=== PATIENT | male | born 1950 | race Caucasian/White ===

== ENCOUNTER 2023-05-17 10:24 | Outpatient (OUT) | payer MEDICARE, SELFPAY ==
--- NOTE | 2023-05-17 10:27 | XR_ITS ---
The [address] [address] Patient Name: VIC SIMPSON MRN: [id number] date: 1950 Sex: M Assigned Patient Location: RAD Current Patient Location: RAD Accession/Order Number: [id number] Exam Date: 05/17/2023 10:45 Report Date: 05/17/2023 11:05 At the request of: LISY FERRER Procedure: XR chest 2V EXAMINATION: XR chest 2V HISTORY: Chest Pain R07.9 , shortness of breath COMPARISON: XR chest 03/27/2023 FINDINGS: LUNGS: Mild opacity and stranding within right lung apex. VASCULATURE: No increased pulmonary vasculature. PLEURA: Large right pleural effusion. CARDIAC: No cardiomegaly or cardiac silhouette abnormality. MEDIASTINUM: No visible mass or adenopathy. BONES: No fracture or visible bone lesion. OTHER: Negative. XR/XR chest 2V IMPRESSION: 1. Grossly stable large right pleural effusion with new mild opacity and stranding within right lung apex; likely infiltrates. 2. Left lung is clear. Electronically authenticated by: KENYON MIRAMONTES Date: 05/17/2023 11:05
== END 2023-05-17 10:25 | disposition home or self-care (01) ==
LOC: RAD 10:24
PROVIDERS: Visit Provider Internal Medicine
DX: R06.02 Shortness of breath (principal); R07.9 Chest pain, unspecified
CPT/HCPCS: 71046

== ENCOUNTER 2023-06-07 12:58 | Outpatient (OUT) | payer MEDICARE, OTHER, SELFPAY ==
--- NOTE | 2023-06-07 13:01 | XR_ITS ---
The [address] [address] Patient Name: VIC SIMPSON MRN: [id number] date: 1950 Sex: M Assigned Patient Location: RAD Current Patient Location: [facility] Accession/Order Number: [id number] Exam Date: 06/07/2023 13:02 Report Date: 06/07/2023 13:20 At the request of: LISY FERRER Procedure: XR chest 2V EXAM: XR chest 2V HISTORY: Pneumonia J18.9 COMPARISON: 05/17/2023 TECHNIQUE: PA and lateral views of the chest. FINDINGS: The cardiomediastinal silhouette is normal. Right pleural effusion and basilar airspace disease. The osseous structures are intact. XR/XR chest 2V IMPRESSION: Right pleural effusion and/or basilar airspace disease. No significant change from prior exam. Electronically authenticated by: RAYSA BETHEA Date: 06/07/2023 13:20
== END 2023-06-07 12:59 | disposition home or self-care (01) ==
LOC: RAD 12:58
PROVIDERS: Visit Provider Internal Medicine
DX: J18.9 Pneumonia, unspecified organism (principal)
CPT/HCPCS: 71046

== ENCOUNTER 2023-06-26 11:23 | Outpatient (OUT) | payer OTHER, SELFPAY ==
[2023-06-26 11:38] VITALS: BP 154/59; PULSE 74; RESP 22; TEMP 36.7; O2SAT 96
--- NOTE | 2023-06-26 12:17 | XR_ITS ---
[address] [address] Patient Name: VIC SIMPSON MRN: [id number] date: 1950 Sex: M Assigned Patient Location: INF Current Patient Location: [facility] Accession/Order Number: [id number] Exam Date: 06/26/2023 08:15 Report Date: 06/26/2023 12:37 At the request of: LISY FERRER Procedure: XR chest 1V EXAM: XR chest 1V HISTORY: Pleural effusion - s/p RIGHT thoracentesis COMPARISON: None. TECHNIQUE: AP view of the chest. FINDINGS: The cardiomediastinal silhouette is normal. The lungs are clear. There is no pneumothorax. Small right pleural effusion. The osseous structures are intact. XR/XR chest 1V IMPRESSION: Small right pleural effusion. Electronically authenticated by: RAYSA BETHEA Date: 06/26/2023 12:37
--- NOTE | 2023-06-26 12:29 | W.PM.PROCNOT ---
Date of procedure: 06/26/23 Pre-op diagnosis: Recurrent right pleural effusion Post-op diagnosis: same as pre-op Procedure: Procedure: Diagnostic & therapeutic ultrasound-guided right thoracentesis Description: Patient brought to room, with time out performed; all voiced agreement of correct patient, procedure, and laterality. Patient was positioned sitting upright. Ultrasound verified fluid collection in the right pleural cavity, with appropriate drainage site marked via marking pen. The area was cleansed and a sterile drape was applied over the area. The drainage site was anesthetized with Lidocaine 1% subcutaneously, intramuscular, to the periosteum, to the pleural cavity with evacuation of a small amount of fluid. An incision was performed with a small blade. The mqxaagdt-hryw-vnincq was inserted through the incision to the pleural fluid, with the catheter advanced over the needle and needle removed. Dark nancy/orange pleural fluid was returned. A total of 500mL of fluid was removed. Procedure was terminated due to lack of fluid return. The catheter was removed during exhalation. Ultrasound noted evacuation of the majority of pleural fluid. A post-op chest x-ray was obtained to verify the presence or lack of a pneumothorax, which is pending at the time of this report. Surgeon: Rafael Downs Estimated blood loss (mL): 0 Condition: stable Disposition: same day
[2023-06-27 12:09] LABS: Triglycerides, Fluid 16 mg/dL (Not Estab.)
[2023-06-27 17:11] LABS: Clarity, Serous Hazy (Clear); Color, Serous Yellow (.); Eosinophils, Serous 0 % (Not Estab.); Lymphocytes, Serous 88 % (Not Estab.); Macrophages, Serous 11 % (Not Estab.); Neut, Serous 1 % (0-24); Nucleated Cells, Serous 1283 /mm3 (0-499); RBC, Serous 5000 /uL (Not Estab.)
[2023-06-28 12:09] LABS: Glucose, Body Fluid 125 mg/dL (.); Protein, Body Fluid 3.5 g/dL (.)
[2023-06-28 17:10] LABS: pH, Body Fluid 7.4 (Not Estab.)
== END 2023-06-26 11:24 | disposition home or self-care (01) ==
LOC: INF 11:23
PROVIDERS: Visit Provider Internal Medicine
DX: J90 Pleural effusion, not elsewhere classified (principal)
CPT/HCPCS: 32554; 36415; 71045; 82945; 83986; 84157; 84478; 86430; 87070; 87101; 87116; 87205; 87206; 88112; 88305; 89050; 89051

== ENCOUNTER 2023-07-20 11:07 | Emergency (ER) | payer MEDICARE, OTHER, SELFPAY ==
[2023-07-20 11:19] VITALS: BP 158/62; PULSE 88; RESP 20; O2SAT 96
[2023-07-20 11:39] VITALS: O2SAT 98
--- NOTE | 2023-07-20 11:39 | ECG_ITS ---
The [facility] Test Date: 2023-07-20 Pat Name: VIC SIMPSON Department: Room: - Gender: Male A/C Technician: : 1950 Requested By: Order Number: [id number] Reading MD: CHRISTY PARIS Measurements Intervals [place] Rate: 62 P: 72 IA: 174 QRS: 47 QRSD: 94 T: 76 QT: 392 QTc: 397 Interpretive Statements 1100 Sinus rhythm 4068 Nonspecific Twave abnormality 9130 borderline ECG No previous ECG available for comparison Electronically Signed On 07-21-2023 5:57:23 EDT by CHRISTY PARIS
--- NOTE | 2023-07-20 11:41 | ED.RECABL1 ---
HPI - Recheck/Abnormal Lab/Rx General Chief Complaint: Recheck/Abnormal Lab/Rx Stated Complaint: POTASSIUM HIGH, DOC SENT PATIENT TO ER Time Seen by Provider: 07/20/23 11:31 Source: patient Mode of arrival: walk-in Limitations comment: K+ 6.4 yesterday and nurse wanted pt to come to ER for EKG. Pt is a [facility]. Denies CP or SOB, pt wears home O2 History of Present Illness HPI narrative: 72-year-old male presents to the emergency department for high potassium. He had routine blood work drawn yesterday and his potassium came back at 6.4 and he was told to go to the emergency department. 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 He has not on a potassium supplement. He has no symptoms. Related Data Home Medications Medication Instructions Recorded Confirmed albuterol 90 mcg/actuation aerosol 90 mcg inhalation TID PRN 07/20/23 07/20/23 inhaler shortness of breath or wheezing alogliptin 12.5 mg tablet 12.5 mg PO QAM 07/20/23 07/20/23 amlodipine 10 mg tablet 10 mg PO DAILY 07/20/23 07/20/23 atorvastatin 40 mg tablet 40 mg PO QPM 07/20/23 07/20/23 carvedilol 25 mg tablet 25 mg PO BID 07/20/23 07/20/23 chlorthalidone 25 mg tablet 37.5 mg PO DAILY 07/20/23 07/20/23 cholecalciferol (vitamin D3) 50 2,000 unit PO QPM 07/20/23 07/20/23 mcg (2,000 unit) tablet (D3 DOTS) cromolyn 5.2 mg/spray (4 %) nasal 1 spray intranasal DAILY PRN 07/20/23 07/20/23 spray congestion ferrous sulfate 325 mg (65 mg 325 mg PO DAILY 07/20/23 07/20/23 iron) tablet (FeroSul) loperamide 2 mg tablet (Diamode) 2 mg PO Q4H PRN loose stool 07/20/23 07/20/23 losartan 25 mg tablet 12.5 mg PO DAILY 07/20/23 07/20/23 magnesium glycinate-mag oxide 100 mg PO QPM 07/20/23 07/20/23 omeprazole 20 mg capsule,delayed 20 mg PO DAILY 07/20/23 07/20/23 release tadalafil 10 mg tablet (Cialis) 10 mg PO DAILY PRN sexual activity 07/20/23 07/20/23 tamsulosin 0.4 mg capsule 0.4 mg PO QPM 07/20/23 07/20/23 Allergies Allergy/AdvReac Type Severity Reaction Status Date / Time No Known Drug Allergies Allergy Verified 07/20/23 11:19 Review of Systems ROS Narrative A ten point review of systems is negative except as noted above. Exam Narrative Exam Narrative: Nurses note and vital signs reviewed and patient is not hypoxic. General: The patient appears well and in no apparent distress. Patient is resting comfortably on cart. Skin: Warm, dry, no pallor noted. There is no rash noted. Head: Normocephalic, atraumatic Eye: Normal conjunctiva, no drainage Ears, Nose, Mouth, and Throat: oral mucosa is moist. Nares patent. Cardiovascular: Regular Rate and Rhythm Respiratory: Patient is in no distress, no accessory muscle use, lungs are clear to auscultation, no wheezing, rales or rhonchi Back: non-tender GI: soft and nontender Musculoskeletal: The patient has no evidence of calf tenderness, no pitting edema, symmetrical pulses noted bilaterally Neurological: A&O, normal speech Psychiatric: Cooperative Constitutional Vital Signs, click to edit/add: Last Vital Signs Pulse 88 07/20/23 11:19 Resp 20 07/20/23 11:19 BP 158/62 H 07/20/23 11:19 Pulse Ox 98 07/20/23 11:39 O2 Del Method Nasal Cannula 07/20/23 11:39 O2 Flow Rate 2 07/20/23 11:39 Course Vital Signs Vital signs: Vital Signs Pulse Rate 88 07/20/23 11:19 Respiratory Rate 20 07/20/23 11:19 Blood Pressure 158/62 H 07/20/23 11:19 Pulse Oximetry 96 07/20/23 11:19 Oxygen Delivery Method Nasal Cannula 07/20/23 11:19 Oxygen Delivery Flow Rate 2.5 07/20/23 11:19 Pulse Rate 88 07/20/23 11:19 Respiratory Rate 20 07/20/23 11:19 Blood Pressure 158/62 H 07/20/23 11:19 Pulse Oximetry 98 07/20/23 11:39 Oxygen Delivery Method Nasal Cannula 07/20/23 11:39 Oxygen Delivery Flow Rate 2 07/20/23 11:39 MDM - Recheck/Abnormal Lab/Rx MDM Narrative Medical decision making narrative: Today's potassium is 5.0. It was 6.4 and that was likely from hemolysis. Nonetheless he doesn't require any treatment and is released. Findings are discussed with the patient and his . Differential Diagnosis Differential diagnosis: Likely other (hyperkalemia, hemolysis) Lab Data Attestation: I reviewed the patient's lab results. Labs: Lab Results 07/20/23 Range/Units 11:35 WBC 2.6 L (4.0-11.0) 10^3/uL RBC 3.42 L (4.70-6.10) 10^6/uL Hgb 9.9 L (14.0-18.0) g/dL Hct 30.7 L (42.0-54.0) % MCV 89.8 (80.0-94.0) fL MCH 28.9 (25.9-34.0) pg MCHC 32.2 (29.9-35.2) g/dL RDW 14.8 (11.0-15.0) % Plt Count 101 L (150-450) 10^3/uL MPV 10.4 (9.5-13.5) fL Neut % (Auto) 57.7 (43.0-75.0) % Lymph % (Auto) 31.3 (20.5-60.0) % [place] % (Auto) 5.7 (1.7-12.0) % Eos % (Auto) 3.8 (0.9-7.0) % Baso % (Auto) 1.1 (0.2-2.0) % Neut # (Auto) 1.5 (1.4-6.5) 10^3/uL Lymph # (Auto) 0.8 L (1.2-3.8) 10^3/uL [place] # (Auto) 0.2 L (0.3-0.8) 10^3/uL Eos # (Auto) 0.1 (0.0-0.7) 10^3/uL Baso # (Auto) 0.0 (0.0-0.1) 10^3/uL Abs Immat Gran (auto) 0.01 (0.00-0.03) 10^3/uL Imm/Tot Granulo (auto) 0.4 (0.0-0.5) % Sodium 140 (136-145) mmol/L Potassium 5.0 (3.5-5.1) mmol/L Chloride 105 (98-107) mmol/L Carbon Dioxide 27.9 (21.0-32.0) mmol/L Anion Gap 12.1 BUN 40.0 H (7.0-18.0) mg/dL Creatinine 2.37 H (0.70-1.30) mg/dL Est GFR ( Amer) 33 L (>=60) Est GFR (Non-Af Amer) 27 L (>=60) BUN/Creatinine Ratio 16.9 Glucose 133 H (74-106) mg/dL Calcium 8.6 (8.5-10.1) mg/dL ECG Data Attestation: I personally reviewed and interpreted this ECG as follows: (EKG on my interpretation shows normal sinus rhythm with a rate of 62.) Discharge Plan Discharge Chief Complaint: Recheck/Abnormal Lab/Rx Clinical Impression: No problem, feared complaint unfounded Patient Disposition: Home, Self-Care Time of Disposition Decision: 13:27 Condition: Good Mode of Transportation: Private Vehicle Prescriptions / Home Meds: No Action alogliptin 12.5 mg tablet 12.5 mg PO QAM amlodipine 10 mg tablet 10 mg PO DAILY atorvastatin 40 mg tablet 40 mg PO QPM carvedilol 25 mg tablet 25 mg PO BID Rx Instructions: must administer with a meal/food cholecalciferol (vitamin D3) [D3 DOTS] 50 mcg (2,000 unit) tablet 2,000 unit PO QPM chlorthalidone 25 mg tablet 37.5 mg PO DAILY cromolyn 5.2 mg/spray (4 %) spray,non-aerosol 1 spray intranasal DAILY PRN (Reason: congestion) loperamide [Diamode] 2 mg tablet 2 mg PO Q4H PRN (Reason: loose stool) Rx Instructions: administer after each loose stool until symptoms controlled; do not exceed 8 mg per 24 hrs losartan 25 mg tablet 12.5 mg PO DAILY magnesium glycinate-mag oxide 120 mg magnesium capsule 100 mg PO QPM omeprazole 20 mg capsule,delayed release(DR/EC) 20 mg PO DAILY ferrous sulfate [FeroSul] 325 mg (65 mg iron) tablet 325 mg PO DAILY tadalafil [Cialis] 10 mg tablet 10 mg PO DAILY PRN (Reason: sexual activity) Rx Instructions: administer approximately 30min before sexual activity; do not use more than 1 dose per 24hrs tamsulosin 0.4 mg capsule 0.4 mg PO QPM albuterol 90 mcg/actuation aerosol 90 mcg inhalation TID PRN (Reason: shortness of breath or wheezing) Stand Alone Forms: Portal Instructions Referrals: NATHANIEL VELASQUEZ [Primary Care Provider] - 1 week
[2023-07-20 13:00] LABS: Basophils Percent Auto 1.1 % (0.2-2.0); Eosinophils Absolute Auto 0.1 10^3/uL (0.0-0.7); Eosinophils Percent Auto 3.8 % (0.9-7.0); Hematocrit 30.7 % (42.0-54.0); Hemoglobin 9.9 g/dL (14.0-18.0); Immature Granulocytes Abs Auto 0.01 10^3/uL (0.00-0.03); Immature Granulocytes Pct Auto 0.4 % (0.0-0.5); Lymphocytes Absolute Auto 0.8 10^3/uL (1.2-3.8); Lymphocytes Percent Auto 31.3 % (20.5-60.0); Mean Corpuscular HGB Conc 32.2 g/dL (29.9-35.2); Mean Corpuscular Hemoglobin 28.9 pg (25.9-34.0); Mean Corpuscular Volume 89.8 fL (80.0-94.0); Mean Platelet Volume 10.4 fL (9.5-13.5); Monocytes Absolute Auto 0.2 10^3/uL (0.3-0.8); Monocytes Percent Auto 5.7 % (1.7-12.0); Neutrophils Absolute Auto 1.5 10^3/uL (1.4-6.5); Neutrophils Percent Auto 57.7 % (43.0-75.0); Platelet Count 101 10^3/uL (150-450); Red Blood Count 3.42 10^6/uL (4.70-6.10); Red Cell Distribution Width 14.8 % (11.0-15.0); White Blood Count 2.6 10^3/uL (4.0-11.0)
[2023-07-20 13:05] LABS: Anion Gap 12.1; BUN Creatinine Ratio 16.9; Calcium 8.6 mg/dL (8.5-10.1); Carbon Dioxide 27.9 mmol/L (21.0-32.0); Chloride 105 mmol/L (98-107); Estimated GFR (African America 33 (>=60); Estimated GFR (Non-African Ame 27 (>=60); Glucose 133 mg/dL (74-106); Sodium 140 mmol/L (136-145)
== END 2023-07-20 13:43 | disposition home or self-care (01) ==
PROVIDERS: Emergency Provider Emergency Medicine
DX: Z71.1 Person with feared health complaint in whom no diagnosis is made (principal); N18.9 Chronic kidney disease, unspecified; Z99.81 Dependence on supplemental oxygen; Z79.899 Other long term (current) drug therapy
CPT/HCPCS: 36415; 80048; 85025; 93005; 99284

== ENCOUNTER 2023-08-20 18:09 | Emergency (ER) | payer MEDICARE, OTHER, SELFPAY ==
[2023-08-20] VITALS (13 sets, daily range): BP systolic 121–149; BP diastolic 45–57; PULSE 72–83; RESP 16–24; TEMP 36.8; O2SAT 90–98; BMI 25.7
--- NOTE | 2023-08-20 18:50 | CT_ITS ---
The [address] [address] Patient Name: VIC SIMPSON MRN: [id number] date: 1950 Sex: M Assigned Patient Location: ER Current Patient Location: ED.MAIN Accession/Order Number: [id number] Exam Date: 08/20/2023 19:13 Report Date: 08/20/2023 20:40 At the request of: LEONILA SOLORIO Procedure: CT abdomen pelvis wo con EXAM: CT abdomen pelvis wo con HISTORY: abdominal COMPARISON: CT abdomen/pelvis dated 05/06/2022. TECHNIQUE: Multiple axial images of the abdomen and pelvis are obtained without the use of IV contrast material. Coronal and sagittal reformatted sequences are submitted for review. FINDINGS: Small right pleural effusion is seen with right lower lobe consolidation. The heart size is normal. Perihepatic ascites is seen. Mild diffuse heterogeneous liver is seen with mild nodular liver surface, which can be seen with cirrhotic changes. Prominent spleen is seen, which measures approximately 16.5 cm in craniocaudad dimension. Perisplenic varices are seen. Small layering tiny gallstones and/or gallbladder sludge is seen in the distended gallbladder. Small pericholecystic fluid versus. Cholecystic ascites is seen. Bilateral kidneys have an unremarkable noncontrast appearance. There is no evidence for nephrolithiasis or hydronephrosis bilaterally. Mild diffuse wall thickening of the urinary bladder is seen, suggestive of mild infectious/inflammatory process. Please correlate clinically. The prostate gland measures 2.9 cm and 4.6 cm in AP and transverse diameter, respectively. Nonobstructive bowel pattern is seen. Small air-fluid levels are seen within nondistended loops of small bowel, which measure up to 2.1 cm in diameter. Stool and gas is seen in the colon. Sigmoid diverticula are seen without significant associated inflammatory changes. Moderate volume of ascites is seen in the abdomen and pelvis. There is no evidence for pneumoperitoneum. The abdominal wall and visualized soft tissues appear unremarkable. No acute osseous abnormality is seen. CT/CT abdomen pelvis wo con IMPRESSION: Small right pleural effusion is seen with right lower lobe Air-fluid levels are seen within minimally distended loops of small bowel, which may represent generalized ileus versus less likely early/partial low-grade small bowel obstruction. Moderate volume of ascites is seen in the abdomen and pelvis. Heterogeneous liver with nodular surface is seen, suggestive of cirrhotic changes. Prominent spleen. No stones and/gallbladder/seen within a distended gallbladder. Small pericholecystic fluid versus ascites is seen. Diffuse wall thickening of the urinary bladder, suggestive of infectious/inflammatory process. Enlarged prostate gland. Electronically authenticated by: MERRILL MOISE Date: 08/20/2023 20:40
[2023-08-20 18:59] LABS: Hematocrit 30.6 % (42.0-54.0); Hemoglobin 9.5 g/dL (14.0-18.0); Mean Corpuscular Hemoglobin 28.1 pg (25.9-34.0); Mean Corpuscular Volume 90.5 fL (80.0-94.0); Mean Platelet Volume 10.2 fL (9.5-13.5); Platelet Count 107 10^3/uL (150-450); Red Blood Count 3.38 10^6/uL (4.70-6.10)
[2023-08-20] MEDS: ONDANSETRON PF 4 MG/2 ML VIAL IV (19:08)
[2023-08-20] MEDS: 0.9 % SODIUM CHLORIDE 1,000 ML 1000 ML IV (19:09)
[2023-08-20] MEDS: 0.9 % SODIUM CHLORIDE 1,000 ML 100 ML IV (19:09)
[2023-08-20 19:17] LABS: Alanine Aminotransferase 11 U/L (16-63); Albumin Globulin Ratio 0.9; Albumin Level 3.2 g/dL (3.4-5.0); Alkaline Phosphatase 129 U/L (46-116); Anion Gap 13.3; Aspartate Amino Transferase 15 U/L (15-37); BUN Creatinine Ratio 15.9; Bilirubin Total 0.6 mg/dL (0.2-1.0); Calcium 9.1 mg/dL (8.5-10.1); Carbon Dioxide 28.9 mmol/L (21.0-32.0); Chloride 102 mmol/L (98-107); Estimated GFR (African America 25 (>=60); Estimated GFR (Non-African Ame 20 (>=60); Globulin 3.7 g/dL; Glucose 145 mg/dL (74-106); Sodium 138 mmol/L (136-145); Total Protein 6.9 g/dL (6.4-8.2)
[2023-08-20 19:21] LABS: Potassium 6.2 mmol/L (3.5-5.1)
[2023-08-20] MEDS: DEXTROSE 50 %-WATER 25 GM/50 ML SYRINGE IV (19:48)
[2023-08-20] MEDS: INSULIN REGULAR 300 UNITS/3 ML 10 UNIT IV (19:48)
[2023-08-20 19:50] LABS: Eosinophils Absolute Manual 0.09 10^3/uL (0.00-0.70); Lymphocytes Absolute Manual 0.42 10^3/uL (1.20-3.80); Monocytes Absolute Manual 0.21 10^3/uL (0.30-0.80); Segmented Neut Absolute Manual 2.34 10^3/uL (1.4-6.5); Toxic Granulation 1+
--- NOTE | 2023-08-20 19:50 | ED.ABDPAIN1 ---
Documented by User: Mishel Horne 08/20/23 21:05 HPI - Abdominal Pain General Chief Complaint: Abdominal Pain Stated Complaint: Constipation, Abdominal Pain Time Seen by Provider: 08/20/23 18:25 Source: patient Mode of arrival: walk-in Limitations: no limitations History of Present Illness HPI narrative: 72-year-old male presents with a chief complaint of abdominal pain and distention. he states she feels constipated he's been unable to have a normal bowel movement for the past 3-4 days.States he has a history of anemia and takes iron supplements daily but has not had a history of constipation. He did try taking Dulcolax earlier today and states he had a small bowel movement. He denies any vomiting. His abdomen is distended. He's had three recent thoracentesis beginning in September 2022, March 2023 and again in June 2023. He had a recent PET scan to rule out lymphoma. He states PET scan was read negative and very underwhelming per his oncologist. He sees oncology at [facility] in [place]. Patient is distended with hypoactive bowel sounds. He denies a history of pain. states he also has a history of COPD, and kidney disease but denies a history of dialysis. States that they do know he does have some current fluid on his lungs from recent pet scan this past week, they have not scheduled to do another thoracentesis at this time Related Data Home Medications Medication Instructions Recorded Confirmed albuterol 90 mcg/actuation aerosol 90 mcg inhalation TID PRN 07/20/23 07/20/23 inhaler shortness of breath or wheezing alogliptin 12.5 mg tablet 12.5 mg PO QAM 07/20/23 07/20/23 amlodipine 10 mg tablet 10 mg PO DAILY 07/20/23 07/20/23 atorvastatin 40 mg tablet 40 mg PO QPM 07/20/23 07/20/23 carvedilol 25 mg tablet 25 mg PO BID 07/20/23 07/20/23 chlorthalidone 25 mg tablet 37.5 mg PO DAILY 07/20/23 07/20/23 cholecalciferol (vitamin D3) 50 2,000 unit PO QPM 07/20/23 07/20/23 mcg (2,000 unit) tablet (D3 DOTS) cromolyn 5.2 mg/spray (4 %) nasal 1 spray intranasal DAILY PRN 07/20/23 07/20/23 spray congestion ferrous sulfate 325 mg (65 mg 325 mg PO DAILY 07/20/23 07/20/23 iron) tablet (FeroSul) loperamide 2 mg tablet (Diamode) 2 mg PO Q4H PRN loose stool 07/20/23 07/20/23 losartan 25 mg tablet 12.5 mg PO DAILY 07/20/23 07/20/23 magnesium glycinate-mag oxide 100 mg PO QPM 07/20/23 07/20/23 omeprazole 20 mg capsule,delayed 20 mg PO DAILY 07/20/23 07/20/23 release tadalafil 10 mg tablet (Cialis) 10 mg PO DAILY PRN sexual activity 07/20/23 07/20/23 tamsulosin 0.4 mg capsule 0.4 mg PO QPM 07/20/23 07/20/23 Allergies Allergy/AdvReac Type Severity Reaction Status Date / Time No Known Drug Allergies Allergy Verified 07/20/23 11:19 Review of Systems ROS Narrative All Systems are negative except as noted/marked.All systems reviewed and otherwise negative [facility] Social History Smoking status: Former smoker Exam Narrative Exam Narrative: Nurses note and vital signs reviewed and patient is not hypoxic. General: The patient appears well and in no apparent distress. Patient is resting comfortably on cart. Skin: Warm, dry, no pallor noted. There is no rash noted. Head: Normocephalic, atraumatic Eye: Normal conjunctiva, no drainage, EOMI. PERRL Ears, Nose, Mouth, and Throat: oral mucosa is moist. Nares patent. Mouth without vesicles. Ear canals patent. Tm's without Erythema Cardiovascular: Regular Rate and Rhythm Respiratory: Lung sounds diminished Back: non-tender, no CVA tenderness bilaterally to percussion. GI: Hypoactive bowel sounds, abdominal distention, Musculoskeletal: The patient has no evidence of calf tenderness, no pitting edema, symmetrical pulses noted bilaterally Neurological: A&O x4, normal speech Psychiatric: Cooperative Constitutional Vital Signs, click to edit/add: Last Vital Signs Temp 98.3 F 08/20/23 18:13 Pulse 73 08/20/23 21:30 Resp 19 08/20/23 21:30 BP 121/50 08/20/23 21:30 Pulse Ox 95 08/20/23 21:30 O2 Del Method Nasal Cannula 08/20/23 18:19 O2 Flow Rate 2 08/20/23 19:59 Course Vital Signs Vital signs: Vital Signs Temperature 98.3 F 08/20/23 18:13 Pulse Rate 79 08/20/23 18:13 Respiratory Rate 24 08/20/23 18:13 Blood Pressure 149/57 H 08/20/23 18:13 Pulse Oximetry 90 L 08/20/23 18:13 Oxygen Delivery Method Nasal Cannula 08/20/23 18:13 Oxygen Delivery Flow Rate 3 08/20/23 18:13 Temperature 98.3 F 08/20/23 18:13 Pulse Rate 73 08/20/23 21:30 Respiratory Rate 19 08/20/23 21:30 Blood Pressure 121/50 08/20/23 21:30 Pulse Oximetry 95 08/20/23 21:30 Oxygen Delivery Method Nasal Cannula 08/20/23 18:19 Oxygen Delivery Flow Rate 2 08/20/23 19:59 MDM - Abdominal Pain MDM Narrative Medical decision making narrative: Patient presented with chief complaint of constipation abdominal discomfort. Patient did have a large bowel movement while waiting here in emergency room. CBC BMP reevaluated patient does have hyperkalemia at this time. He has a known history of elevated BUN/creatinine and recent potassium was in the five range. Today at six. Patient's been medicated here in the emergency room given IV fluids he does feel somewhat better. CT scan shows that he has small right pleural effusion right lower lobe air-fluid levels minimally distended small bowel loops moderate volume of ascites in the abdomen and pelvis. Patient's history of renal insufficiency and elevated potassium patient will be transferred to a facility where nephrology is available. Patient sees a financial management consultant at [facility] we did [place] a call to the [facility] for transfer and have not yet heard back from the [facility]. Patient also sees Dr Garzon at the [facility] oncology as he is been currently been worked up for lymphoma. Recent PET scan per showed no acute abnormalities. Patient does have a history of chronic obstructive pulmonary disease and wears 2 L of oxygen while at rest and increases to 6 L of oxygen she is up and ambulating. Patient's vital signs are stable he has not hypoxic care wearing his oxygen. patient and were made aware of plan of care and agree with plan of care. Transitional care to Dr. batres at this time we're [facility] Differential Diagnosis Differential diagnosis: Likely abdominal pain and constipation Medical Records Attestation: I reviewed the patient's medical records. Lab Data Attestation: I reviewed the patient's lab results. Labs: Lab Results 08/20/23 Range/Units 18:30 WBC 3.0 L (4.0-11.0) 10^3/uL RBC 3.38 L (4.70-6.10) 10^6/uL Hgb 9.5 L (14.0-18.0) g/dL Hct 30.6 L (42.0-54.0) % MCV 90.5 (80.0-94.0) fL MCH 28.1 (25.9-34.0) pg MCHC 31.0 (29.9-35.2) g/dL RDW 14.0 (11.0-15.0) % Plt Count 107 L (150-450) 10^3/uL MPV 10.2 (9.5-13.5) fL Seg Neuts % (Manual) 78.0 Lymphocytes % (Manual) 14.0 L (20.5-60.0) % Monocytes % (Manual) 7.0 (1.7-12.0) % Eosinophils % (Manual) 3.0 (0.9-7.0) % Basophils % (Manual) 0.0 L (0.2-2.0) % Neutrophils # (Manual) 2.34 (1.4-6.5) 10^3/uL Lymphocytes # (Manual) 0.42 L (1.20-3.80) 10^3/uL Monocytes # (Manual) 0.21 L (0.30-0.80) 10^3/uL Eosinophils # (Manual) 0.09 (0.00-0.70) 10^3/uL Basophils # (Manual) 0.00 (0.00-0.10) 10^3/uL Toxic Granulation 1+ Sodium 138 (136-145) mmol/L Potassium 6.2 H* (3.5-5.1) mmol/L Chloride 102 (98-107) mmol/L Carbon Dioxide 28.9 (21.0-32.0) mmol/L Anion Gap 13.3 BUN 48.0 H (7.0-18.0) mg/dL Creatinine 3.02 H (0.70-1.30) mg/dL Est GFR ( Amer) 25 L (>=60) Est GFR (Non-Af Amer) 20 L (>=60) BUN/Creatinine Ratio 15.9 Glucose 145 H (74-106) mg/dL Lactate 1.0 (0.4-2.0) mmol/L Calcium 9.1 (8.5-10.1) mg/dL Total Bilirubin 0.6 (0.2-1.0) mg/dL AST 15 (15-37) U/L ALT 11 L (16-63) U/L Alkaline Phosphatase 129 H (46-116) U/L Total Protein 6.9 (6.4-8.2) g/dL Albumin 3.2 L (3.4-5.0) g/dL Globulin 3.7 g/dL Albumin/Globulin Ratio 0.[address] scan - abdomen: Radiologist's impression: Small right pleural effusion is seen with right lower lobe Air-fluid levels are seen within minimally distended loops of small bowel, which may represent generalized ileus versus less likely early/partial low-grade small bowel obstruction. Moderate volume of ascites is seen in the abdomen and pelvis. Heterogeneous liver with nodular surface is seen, suggestive of cirrhotic changes. Prominent spleen. No stones and/gallbladder/seen within a distended gallbladder. Small pericholecystic fluid versus ascites is seen. Diffuse wall thickening of the urinary bladder, suggestive of infectious/inflammatory process. Enlarged prostate gland. Electronically authenticated ECG Data Attestation: ?I have reviewed the pertinent ECG results. Interpretation: 1940EKG is normal sinus rhythm rate 73 bpm NH interval 150 ms QRS duration 82 ms, no STEMI Discharge Plan Discharge Chief Complaint: Abdominal Pain Clinical Impression: Abdominal ascites, Pleural effusion, Renal failure, Acute hyperkalemia Patient Disposition: [facility] Time of Disposition Decision: 22:27 Discharge Location: [facility] Condition: Good Mode of Transportation: EMS Documented by User: Roni Batres MD 08/20/23 22:30 HPI - Abdominal Pain General Chief Complaint: Abdominal Pain Stated Complaint: Constipation, Abdominal Pain Time Seen by Provider: 08/20/23 18:25 Related Data Home Medications Medication Instructions Recorded Confirmed albuterol 90 mcg/actuation aerosol 90 mcg inhalation TID PRN 07/20/23 07/20/23 inhaler shortness of breath or wheezing alogliptin 12.5 mg tablet 12.5 mg PO QAM 07/20/23 07/20/23 amlodipine 10 mg tablet 10 mg PO DAILY 07/20/23 07/20/23 atorvastatin 40 mg tablet 40 mg PO QPM 07/20/23 07/20/23 carvedilol 25 mg tablet 25 mg PO BID 07/20/23 07/20/23 chlorthalidone 25 mg tablet 37.5 mg PO DAILY 07/20/23 07/20/23 cholecalciferol (vitamin D3) 50 2,000 unit PO QPM 07/20/23 07/20/23 mcg (2,000 unit) tablet (D3 DOTS) cromolyn 5.2 mg/spray (4 %) nasal 1 spray intranasal DAILY PRN 07/20/23 07/20/23 spray congestion ferrous sulfate 325 mg (65 mg 325 mg PO DAILY 07/20/23 07/20/23 iron) tablet (FeroSul) loperamide 2 mg tablet (Diamode) 2 mg PO Q4H PRN loose stool 07/20/23 07/20/23 losartan 25 mg tablet 12.5 mg PO DAILY 07/20/23 07/20/23 magnesium glycinate-mag oxide 100 mg PO QPM 07/20/23 07/20/23 omeprazole 20 mg capsule,delayed 20 mg PO DAILY 07/20/23 07/20/23 release tadalafil 10 mg tablet (Cialis) 10 mg PO DAILY PRN sexual activity 07/20/23 07/20/23 tamsulosin 0.4 mg capsule 0.4 mg PO QPM 07/20/23 07/20/23 Allergies Allergy/AdvReac Type Severity Reaction Status Date / Time No Known Drug Allergies Allergy Verified 07/20/23 11:19 PFSH PFSH Social History Smoking status: Former smoker Exam Constitutional Vital Signs, click to edit/add: Last Vital Signs Temp 98.3 F 08/20/23 18:13 Pulse 73 08/20/23 21:30 Resp 19 08/20/23 21:30 BP 121/50 08/20/23 21:30 Pulse Ox 95 08/20/23 21:30 O2 Del Method Nasal Cannula 08/20/23 18:19 O2 Flow Rate 2 08/20/23 19:59 Course Vital Signs Vital signs: Vital Signs Temperature 98.3 F 08/20/23 18:13 Pulse Rate 79 08/20/23 18:13 Respiratory Rate 24 08/20/23 18:13 Blood Pressure 149/57 H 08/20/23 18:13 Pulse Oximetry 90 L 08/20/23 18:13 Oxygen Delivery Method Nasal Cannula 08/20/23 18:13 Oxygen Delivery Flow Rate 3 08/20/23 18:13 Temperature 98.3 F 08/20/23 18:13 Pulse Rate 73 08/20/23 21:30 Respiratory Rate 19 08/20/23 21:30 Blood Pressure 121/50 08/20/23 21:30 Pulse Oximetry 95 08/20/23 21:30 Oxygen Delivery Method Nasal Cannula 08/20/23 18:19 Oxygen Delivery Flow Rate 2 08/20/23 19:59 MDM - Abdominal Pain MDM Narrative Medical decision making narrative: Patient presented with chief complaint of constipation abdominal discomfort. Patient did have a large bowel movement while waiting here in emergency room. CBC BMP reevaluated patient does have hyperkalemia at this time. He has a known history of elevated BUN/creatinine and recent potassium was in the five range. Today at six. Patient's been medicated here in the emergency room given IV fluids he does feel somewhat better. CT scan shows that he has small right pleural effusion right lower lobe air-fluid levels minimally distended small bowel loops moderate volume of ascites in the abdomen and pelvis. Patient's history of renal insufficiency and elevated potassium patient will be transferred to a facility where nephrology is available. Patient sees a financial management consultant at [facility] not yet heard back from the [facility]. Patient also sees Dr Garzon at the [facility] oncology as he is been currently been worked up for lymphoma. Recent PET scan per showed no acute abnormalities. Patient does have a history of chronic obstructive pulmonary disease and wears 2 L of oxygen while at rest and increases to 6 L of oxygen she is up and ambulating. Patient's vital signs are stable he has not hypoxic care wearing his oxygen. patient and were made aware of plan of care and agree with plan of care. Transitional care to Dr. batres at this time we're [facility] 10:30 pm I've spoken to Dr. Jimenez who accepts the patient. The patient is stable for transfer and agreeable. He'll require nephrology and further care. Low Calma ordered here after he received D50 and insulin for the potassium of 6.2. Findings are discussed thoroughly with the patient and his . Differential Diagnosis Differential diagnosis: Likely small bowel obstruction Lab Data Labs: Lab Results 08/20/23 Range/Units 18:30 WBC 3.0 L (4.0-11.0) 10^3/uL RBC 3.38 L (4.70-6.10) 10^6/uL Hgb 9.5 L (14.0-18.0) g/dL Hct 30.6 L (42.0-54.0) % MCV 90.5 (80.0-94.0) fL MCH 28.1 (25.9-34.0) pg MCHC 31.0 (29.9-35.2) g/dL RDW 14.0 (11.0-15.0) % Plt Count 107 L (150-450) 10^3/uL MPV 10.2 (9.5-13.5) fL Seg Neuts % (Manual) 78.0 Lymphocytes % (Manual) 14.0 L (20.5-60.0) % Monocytes % (Manual) 7.0 (1.7-12.0) % Eosinophils % (Manual) 3.0 (0.9-7.0) % Basophils % (Manual) 0.0 L (0.2-2.0) % Neutrophils # (Manual) 2.34 (1.4-6.5) 10^3/uL Lymphocytes # (Manual) 0.42 L (1.20-3.80) 10^3/uL Monocytes # (Manual) 0.21 L (0.30-0.80) 10^3/uL Eosinophils # (Manual) 0.09 (0.00-0.70) 10^3/uL Basophils # (Manual) 0.00 (0.00-0.10) 10^3/uL Toxic Granulation 1+ Sodium 138 (136-145) mmol/L Potassium 6.2 H* (3.5-5.1) mmol/L Chloride 102 (98-107) mmol/L Carbon Dioxide 28.9 (21.0-32.0) mmol/L Anion Gap 13.3 BUN 48.0 H (7.0-18.0) mg/dL Creatinine 3.02 H (0.70-1.30) mg/dL Est GFR ( Amer) 25 L (>=60) Est GFR (Non-Af Amer) 20 L (>=60) BUN/Creatinine Ratio 15.9 Glucose 145 H (74-106) mg/dL Lactate 1.0 (0.4-2.0) mmol/L Calcium 9.1 (8.5-10.1) mg/dL Total Bilirubin 0.6 (0.2-1.0) mg/dL AST 15 (15-37) U/L ALT 11 L (16-63) U/L Alkaline Phosphatase 129 H (46-116) U/L Total Protein 6.9 (6.4-8.2) g/dL Albumin 3.2 L (3.4-5.0) g/dL Globulin 3.7 g/dL Albumin/Globulin Ratio 0.9 Critical Care Time Critical Care Time Critical Care Time: Yes Total Critical Care Time: 35 Attestation: Due to the high probability of sudden and clinically significant deterioration in the patient's condition he/she required the highest level of my preparedness to intervene urgently I provided critical care time including documentation time, medication orders and management, reevaluation, vital sign assessment, ordering and reviewing of lab tests, ordering and reviewing of x-ray studies, and admission orders. Aggregate critical care time is 35 minutes including only time during which I was engaged in work directly related to his/her care and did not include time spent treating other patients simultaneously. Discharge Plan Discharge Chief Complaint: Abdominal Pain Clinical Impression: Abdominal ascites, Pleural effusion, Renal failure, Acute hyperkalemia Patient Disposition: [facility] Time of Disposition Decision: 22:27 Discharge Location: [facility] Condition: Good Mode of Transportation: EMS
--- NOTE | 2023-08-20 21:05 | ECG_ITS ---
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
[2023-08-20] MEDS: SODIUM ZIRCONIUM CYCLOSILICATE 10 GM POWD.PACK PO (22:34)
--- NOTE | 2023-08-20 23:21 | PC.NURSE ---
o2 increased to 4 liters. patient saturation dipped to 88% and would recover after a minute or 2. when check on by nurse patient states hes aware, states he keeps dozing off to sleep and when he hears the alarm he wakes up and takes a few deep breaths. physician notified.
== END 2023-08-21 00:28 | disposition short-term general hospital (02) ==
PROVIDERS: Physician Assistant; Emergency Provider Emergency Medicine
DX: R18.8 Other ascites (principal); J90 Pleural effusion, not elsewhere classified; E87.5 Hyperkalemia; N19 Unspecified kidney failure; J44.9 Chronic obstructive pulmonary disease, unspecified; Z79.899 Other long term (current) drug therapy; Z87.891 Personal history of nicotine dependence; Z99.81 Dependence on supplemental oxygen
CPT/HCPCS: 36415; 74176; 80053; 81001; 83605; 85027; 93005; 96374; 99285

== ENCOUNTER 2023-10-06 13:40 | Outpatient (OUT) | payer OTHER, SELFPAY ==
--- NOTE | 2023-10-06 13:44 | CT_ITS ---
[address] [address] Patient Name: VIC SIMPSON MRN: [id number] date: 1950 Sex: M Assigned Patient Location: CT Current Patient Location: CT Accession/Order Number: [id number] Exam Date: 10/06/2023 13:50 Report Date: 10/06/2023 16:07 At the request of: LISY FERRER Procedure: CT chest wo con EXAMINATION: CT chest wo con HISTORY: Pleural Effusion J90 , cough COMPARISON: CT abdomen pelvis 09/20/2023, CT chest 03/06/2023 TECHNIQUE: Multi-planar CT images were obtained without and/or with IV contrast as indicated by examination type. Axial, Coronal, and Sagittal images. Dose reduction techniques were achieved by using automated exposure control and/or adjustment of mA and/or kV according to patient size and/or use of iterative reconstruction technique. FINDINGS: LUNGS: Complete collapse of right lower lobe secondary to central bronchial obstruction. Mild scarring versus discoid atelectasis within right middle lobe and posterior left lung base. PLEURA: Small right pleural effusion. VASCULATURE: No abnormality. TONY: A few calcified right hilar lymph nodes suggestive of chronic granulomatous disease. MEDIASTINUM: Calcified lymph nodes. CARDIAC: No enlargement, pericardial thickening, or significant calcification. AORTA: No aneurysm or dissection. CHEST WALL: No mass or axillary adenopathy. BONES: No bone lesion or fracture. LIMITED ABDOMEN: No suspicious findings Limited images of the upper abdomen. OTHER: Negative. CT/CT chest wo con IMPRESSION: 1. Complete collapse of right lower lobe secondary to central bronchial obstruction of uncertain etiology; mass versus mucous plugging. No appreciably change. 2. Small right pleural effusion; grossly stable compared to 08/20/2023 but significantly improved compared to 03/06/2023. Electronically authenticated by: KENYON MIRAMONTES Date: 10/06/2023 16:07
== END 2023-10-06 13:41 | disposition home or self-care (01) ==
LOC: CT 13:40
PROVIDERS: Visit Provider Internal Medicine
DX: J90 Pleural effusion, not elsewhere classified (principal); J98.19 Other pulmonary collapse
CPT/HCPCS: 71250

== ENCOUNTER 2024-02-29 13:05 | Outpatient (OUT) | payer OTHER, SELFPAY ==
[2024-02-29 13:28] LABS: Creatinine Urine Random 178.56 mg/dL (20.00-300.00); Protein Creatinine Ratio Urine 0.66; Total Protein Urine Random 117.6 mg/dL (<=11.9)
[2024-02-29 13:46] LABS: Hematocrit 33.4 % (42.0-54.0); Hemoglobin 10.6 g/dL (14.0-18.0); Mean Corpuscular HGB Conc 31.7 g/dL (29.9-35.2); Mean Corpuscular Hemoglobin 28.1 pg (25.9-34.0); Mean Corpuscular Volume 88.6 fL (80.0-94.0); Mean Platelet Volume 9.6 fL (9.5-13.5); Platelet Count 105 10^3/uL (150-450); Red Blood Count 3.77 10^6/uL (4.70-6.10); Red Cell Distribution Width 14.6 % (11.0-15.0); White Blood Count 4.6 10^3/uL (4.0-11.0)
[2024-02-29 14:11] LABS: Alanine Aminotransferase 20 U/L (16-63); Albumin Level 3.8 g/dL (3.4-5.0); Alkaline Phosphatase 131 U/L (46-116); Anion Gap 16.9; Aspartate Amino Transferase 19 U/L (15-37); Bilirubin Total 0.5 mg/dL (0.2-1.0); Calcium 8.4 mg/dL (8.5-10.1); Carbon Dioxide 28.3 mmol/L (21.0-32.0); Chloride 102 mmol/L (98-107); Estimated GFR (African America 28 (>=60); Estimated GFR (Non-African Ame 23 (>=60); Globulin 3.7 g/dL; Glucose 231 mg/dL (74-106); Magnesium 1.3 mg/dL (1.8-2.4); Phosphorus 4.7 mg/dL (2.6-4.7); Potassium 4.2 mmol/L (3.5-5.1); Sodium 143 mmol/L (136-145); Total Protein 7.5 g/dL (6.4-8.2); Uric Acid 10.8 mg/dL (3.5-7.2)
[2024-02-29 14:21] LABS: Percent Iron Saturation 25.6 %
[2024-02-29 14:57] LABS: Bilirubin Urine NEGATIVE (NEGATIVE); Blood Urine NEGATIVE (NEGATIVE); Clarity Urine CLEAR (CLEAR); Color Urine YELLOW (YELLOW); Glucose Urine UA NEGATIVE (NEGATIVE); Ketones Urine NEGATIVE (NEGATIVE); Leukocyte Esterase Urine TRACE (NEGATIVE); Nitrite Urine NEGATIVE (NEGATIVE); Protein Urine 100 mg/dL (NEG/TRACE); Specific Gravity Urine 1.025 (1.005-1.025); Urobilinogen Urine 0.2 EU/dL (0.2-1.0); pH Urine 5.5 (5.0-9.0)
[2024-03-01 13:08] LABS: PTH, Intact 134 pg/mL (15-65)
== END 2024-02-29 13:06 | disposition home or self-care (01) ==
LOC: LAB 13:05
PROVIDERS: Visit Provider Internal Medicine Nephrology
DX: I12.9 Hypertensive chronic kidney disease with stage 1 through stage 4 chronic kidney disease, or unspecified chronic kidney disease (principal); N18.4 Chronic kidney disease, stage 4 (severe); D64.9 Anemia, unspecified; E11.9 Type 2 diabetes mellitus without complications; Z87.438 Personal history of other diseases of male genital organs
CPT/HCPCS: 36415; 80053; 81003; 82306; 82570; 82607; 82728; 82746; 83540; 83550; 83735; 83970; 84100; 84156; 84550; 85027

== ENCOUNTER 2024-04-12 12:46 | Outpatient (OUT) | payer OTHER, MEDICARE, SELFPAY ==
--- NOTE | 2024-04-12 12:50 | CT_ITS ---
[address] [address] Patient Name: VIC SIMPSON MRN: [id number] date: 1950 Sex: M Assigned Patient Location: CT Current Patient Location: Accession/Order Number: [id number] Exam Date: 04/12/2024 13:05 Report Date: 04/15/2024 06:24 At the request of: LISY FERRER Procedure: CT chest wo con EXAMINATION: CT chest wo con HISTORY: Pleural effusion ; follow-up COMPARISON: CT chest 10/06/2023 TECHNIQUE: Multi-planar CT images were obtained without and/or with IV contrast as indicated by examination type. Axial, Coronal, and Sagittal images. Dose reduction techniques were achieved by using automated exposure control and/or adjustment of mA and/or kV according to patient size and/or use of iterative reconstruction technique. FINDINGS: LUNGS: Complete collapse of right lower lobe with occlusion of the right lower lobe bronchus. Collapse/near complete collapse of right middle lobe with occlusion of the bronchus. Collapse of the medial basilar segment of left lower lobe with patent bronchi. Moderate-marked emphysematous changes throughout the lungs.. PLEURA: Bilateral pleural effusions, 2.1 cm in thickness on right, 0.9 cm on left. VASCULATURE: No abnormality. TONY: No mass or adenopathy. MEDIASTINUM: Calcified subcarinal lymph nodes. CARDIAC: No enlargement or pericardial thickening.. Coronary artery calcifications: AORTA: No aneurysm or dissection. CHEST WALL: No mass or axillary adenopathy. BONES: No bone lesion or fracture. LIMITED ABDOMEN: No suspicious findings Limited images of the upper abdomen. OTHER: Negative. CT/CT chest wo con IMPRESSION: 1. Complete collapse of right lower lobe, right middle lobe, and partial collapse of left lower lobe; progressed since prior study. 2. Moderate to large right pleural effusion and small left pleural effusion; increased since prior study. Electronically authenticated by: KENYON MIRAMONTES Date: 04/15/2024 06:24
== END 2024-04-12 12:47 | disposition home or self-care (01) ==
LOC: CT 12:46
PROVIDERS: Visit Provider Internal Medicine
DX: J90 Pleural effusion, not elsewhere classified (principal); J98.19 Other pulmonary collapse
CPT/HCPCS: 71250

== ENCOUNTER 2024-04-18 12:44 | Outpatient (OUT) | payer OTHER, MEDICARE, SELFPAY ==
--- NOTE | 2024-04-18 13:35 | ECG_ITS ---
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
[2024-04-18 14:02] LABS: Basophils Absolute Auto 0.1 10^3/uL (0.0-0.1); Basophils Percent Auto 1.5 % (0.2-2.0); Eosinophils Absolute Auto 0.1 10^3/uL (0.0-0.7); Eosinophils Percent Auto 3.3 % (0.9-7.0); Hematocrit 31.9 % (42.0-54.0); Hemoglobin 9.5 g/dL (14.0-18.0); Immature Granulocytes Abs Auto 0.02 10^3/uL (0.00-0.03); Immature Granulocytes Pct Auto 0.5 % (0.0-0.5); Lymphocytes Absolute Auto 1.1 10^3/uL (1.2-3.8); Lymphocytes Percent Auto 26.5 % (20.5-60.0); Mean Corpuscular HGB Conc 29.8 g/dL (29.9-35.2); Mean Corpuscular Hemoglobin 27.9 pg (25.9-34.0); Mean Corpuscular Volume 93.8 fL (80.0-94.0); Mean Platelet Volume 8.6 fL (9.5-13.5); Monocytes Absolute Auto 0.2 10^3/uL (0.3-0.8); Monocytes Percent Auto 6.1 % (1.7-12.0); Neutrophils Absolute Auto 2.5 10^3/uL (1.4-6.5); Neutrophils Percent Auto 62.1 % (43.0-75.0); Platelet Count 96 10^3/uL (150-450); Red Cell Distribution Width 16.3 % (11.0-15.0)
[2024-04-18 14:12] LABS: Anion Gap 10.7; BUN Creatinine Ratio 13.3; Calcium 8.7 mg/dL (8.5-10.1); Chloride 104 mmol/L (98-107); Estimated GFR (African America 26 (>=60); Estimated GFR (Non-African Ame 21 (>=60); Glucose 94 mg/dL (74-106); Potassium 5.7 mmol/L (3.5-5.1); Sodium 145 mmol/L (136-145)
[2024-04-18 14:23] LABS: INR 1.08; Prothrombin Time 11.4 sec (9.0-11.6)
[2024-04-18 15:11] LABS: Partial Thromboplastin Time 28.1 sec (22.3-36.2)
== END 2024-04-18 12:45 | disposition home or self-care (01) ==
LOC: PST 12:46
PROVIDERS: Visit Provider Internal Medicine
DX: Z01.810 Encounter for preprocedural cardiovascular examination (principal); Z01.812 Encounter for preprocedural laboratory examination; J90 Pleural effusion, not elsewhere classified
CPT/HCPCS: 36415; 80048; 85025; 85610; 85730; 93005

== ENCOUNTER 2024-04-24 11:03 | Day surgery (SDC) | payer OTHER, SELFPAY ==
[2024-04-18 14:21] VITALS: BP 162/66; PULSE 74; TEMP 36.2; O2SAT 95; BMI 27.4
[2024-04-24] VITALS (9 sets, daily range): BP systolic 118–145; BP diastolic 51–65; PULSE 63–70; TEMP 36–36.1; O2SAT 87–97; BMI 26.6
[2024-04-24 11:24] LABS: Glucometer 160 mg/dL (74-106)
[2024-04-24] MEDS: LACTATED RINGER'S SOLUTION 1,000 ML 50 ML IV (11:29)
[2024-04-24] MEDS: LIDOCAINE HCL 1% 100 MG/10 ML MDV INJ (12:12)
--- NOTE | 2024-04-24 12:46 | P.ON_ITS ---
Date of procedure: 04/24/24 Procedure: Procedure Diagnostic & therapeutic flexible bronchoscopy Indication Mucus plugging Findings 1. Thick tenacious secretions throughout the bronchial tree with mucus plugging of the bronchus intermedius extending into the right middle and lower lobes 2. Mild endobronchial inflammation 3. No endobronchial lesions seen Anesthesia 1. General anesthesia - please see their records 2. Lidocaine 1% - 10mL Specimens Bronchoalveolar lavage from the right lower lobe Estimated blood loss None Complications None immediately following the procedure Description Informed consent was obtained after risks, benefits, and alternatives were discussed with the patient.? Time out was initiated to confirm the correct keila ent, site, and procedure with all present voicing in the affirmative. Patient was brought to the operating room suite where noninvasive monitoring was utilized.? Sedation & anesthesia were administered by the anesthesia department- please refer to their records for further information.? Tape was placed over the patient's eyes to prevent spillage of secretions.? A laryngeal mask airway was placed by anesthesia.? The vocal cords were observed without gross evidence of nodules, ulcers, or masses.? 5mL of 1% lidocaine were instilled topically to the vocal cords.? The bronchoscope was then passed between the vocal cords and advanced through the trachea where a large mucus plug was present. It was suctioned, but it was so tenacious it clogged the bronchoscope. It was able to be unclogged and finally removed from the airway. The bronchoscope was then advanced to the distal trachea where an additional 5mL of 1% lidocaine were instilled topically to the main milton.? The main milton was sharp without splaying or evidence of underlying mass. The bronchoscope was then advanced through the right main bronchus to the right upper lobe, where the apical, posterior, and anterior segments were visualized.? The bronchoscope was advanced to the bronchus intermedius where another large mucus plug was present, this time completely occluding the lumen. This was removed, with strands extruding from the right middle and lower lobes. Once the airway was clear, the bronchoscope was advanced into the right middle lobe or the medial and lateral segments visualized.? The bronchoscope was then advanced to the right lower lobe superior, medial, anterior, lateral, and posterior basilar segments.? The endobronchial mucosa was mildly inflamed. No endobronchial lesions were visualized. The bronchoscope was retracted to the main milton and advanced through the left main bronchus to the left upper lobe where the upper division apicoposterior and anterior, as well as lingular superior and inferior segments were visualized.? The bronchoscope was then advanced into the left lower lobe where the superior, anteromedial, lateral, and posterior basilar segments visualized.? There were no large mucus plugs noted in the left lower lobe. Mild endobronchial inflammation was once again seen. Next, a bronchoalveolar lavage was obtained from the right lower lobe. Multiple small plugs were extracted during the lavage. Once an adequate sample was obtained, the trap was removed and the remaining bronchi were washed & lavaged to remove remnant mucus plugs. After the major airways appeared cleared, the bronchoscope was withdrawn.? Patient tolerated procedure well. Surgeon: Rafael Downs Condition: stable Disposition: same day
== END 2024-04-24 13:40 | disposition home or self-care (01) ==
PROVIDERS: Visit Provider Internal Medicine
PROC: (CPT 31624; principal; 2024-04-24 12:00)
DX: T17.590A Other foreign object in bronchus causing asphyxiation, initial encounter (principal); W44.F9XA Other object of natural or organic material, entering into or through a natural orifice, initial encounter; Z87.891 Personal history of nicotine dependence; J44.9 Chronic obstructive pulmonary disease, unspecified; Z99.81 Dependence on supplemental oxygen; E78.5 Hyperlipidemia, unspecified; I10 Essential (primary) hypertension; Z90.49 Acquired absence of other specified parts of digestive tract; K21.9 Gastro-esophageal reflux disease without esophagitis; E11.40 Type 2 diabetes mellitus with diabetic neuropathy, unspecified; E11.22 Type 2 diabetes mellitus with diabetic chronic kidney disease; N18.9 Chronic kidney disease, unspecified; M10.9 Gout, unspecified
CPT/HCPCS: 31624; 36415; 82948; 87070; 87102; 87116; 87150; 87186; 87205; 87206; 88112; 88305; 99999; J1100; J1230; J2250; J2704; J3010

== ENCOUNTER 2024-08-08 13:00 | Outpatient (OUT) | payer OTHER, SELFPAY ==
--- NOTE | 2024-08-08 13:05 | CT_ITS ---
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 Dose reduction techniques were achieved by using automated exposure control and/or adjustment of mA and/or kV according to patient size and/or use of iterative reconstruction technique. FINDINGS: LUNGS: Moderate-marked emphysematous changes. Mild curvilinear stranding within lung bases favoring scarring or discoid atelectasis. PLEURA: Right pleural effusion, 9 mm in thickness. VASCULATURE: No abnormality. TONY: Calcified right hilar lymph nodes; likely sequela of chronic granulomatous disease.. MEDIASTINUM: Calcified subcarinal lymph nodes. CARDIAC: No enlargement, pericardial thickening, or pericardial effusion. Coronary Artery calcifications: Coronary calcifications are absent. AORTA: No aneurysm or dissection. CHEST WALL: No mass or axillary adenopathy BONES: No bone lesion or fracture. LIMITED ABDOMEN: Small amount of free fluid adjacent the liver and spleen. Limited images of the upper abdomen. OTHER: Negative. CT/CT chest wo con IMPRESSION: 1. Small right pleural effusion; smaller than previously seen. 2. No acute infiltrates. Trace amount of bibasilar scarring. 3. Moderate to marked emphysematous changes. 4. Small amount of free fluid/ascites within upper abdomen; similar to prior study. Electronically authenticated by: KENYON MIRAMONTES Date: 08/09/2024 05:18
== END 2024-08-08 13:01 | disposition home or self-care (01) ==
LOC: CT 13:01
PROVIDERS: Visit Provider Internal Medicine
DX: A31.0 Pulmonary mycobacterial infection (principal); J90 Pleural effusion, not elsewhere classified
CPT/HCPCS: 71250

== ENCOUNTER 2025-02-13 10:02 | Outpatient (OUT) | payer OTHER, SELFPAY ==
[2025-02-13 10:26] LABS: Bilirubin Urine SMALL (NEGATIVE); Blood Urine NEGATIVE (NEGATIVE); Clarity Urine SL CLOUDY (CLEAR); Color Urine DK. YELLOW (YELLOW); Glucose Urine UA NEGATIVE (NEGATIVE); Ketones Urine 15 mg/dL (NEGATIVE); Leukocyte Esterase Urine TRACE (NEGATIVE); Nitrite Urine NEGATIVE (NEGATIVE); Protein Urine 100 mg/dL (NEG/TRACE); Specific Gravity Urine >=1.030 (1.005-1.025); Urobilinogen Urine 0.2 EU/dL (0.2-1.0)
[2025-02-13 11:50] LABS: Alanine Aminotransferase 18 U/L (16-63); Albumin Globulin Ratio 0.9; Albumin Level 3.4 g/dL (3.4-5.0); Alkaline Phosphatase 190 U/L (46-116); Anion Gap 14.5; Aspartate Amino Transferase 21 U/L (15-37); Bilirubin Total 0.5 mg/dL (0.2-1.0); Calcium 8.8 mg/dL (8.5-10.1); Carbon Dioxide 30.6 mmol/L (21.0-32.0); Chloride 95 mmol/L (98-107); Estimated GFR (African America 13 (>=60 mL/min/1.73m^2); Estimated GFR (Non-African Ame 11 (>=60 mL/min/1.73m^2); Glucose 113 mg/dL (74-106); Potassium 4.1 mmol/L (3.5-5.1); Sodium 136 mmol/L (136-145); Total Protein 7.4 g/dL (6.4-8.2)
== END 2025-02-13 10:03 | disposition home or self-care (01) ==
LOC: LAB 10:02
PROVIDERS: Visit Provider Chiropractor
DX: N18.9 Chronic kidney disease, unspecified (principal)
CPT/HCPCS: 36415; 80053; 81003

== ENCOUNTER 2025-10-07 14:30 | Outpatient (OUT) | payer MEDICARE, OTHER, SELFPAY ==
--- OUTSIDE RECORDS SUMMARY | 2025-10-07 14:34 | XMS_ITS | Clinical Summary ---
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
--- OUTSIDE RECORDS SUMMARY | 2025-10-07 14:34 | XMS_ITS | Clinical Summary ---
Author Organization 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 Name Role Phone Rafael Downs DO Unavailable [phone] [facility], Hansel Mireles MD Primary Care Provider [phone] Ganesh Barriga MD Unavailable [phone] Allergies No known active allergies Medications MedicationSigDispense QuantityRefillsLast FilledStart DateEnd DateStatus alogliptin (NESINA) 12.5 mg tab Take 12.5 mg by mouth once daily.Active amLODIPine (NORVASC) 10 mg tablet Take 10 mg by mouth once daily.Active atorvastatin (LIPITOR) 80 mg tablet Take 80 mg by mouth once daily.Active betamethasone-chondroitin, PF, 0.1-0.25 % drop Use in eyes.Active carvedilol (COREG) 25 mg tablet Take 25 mg by mouth twice daily with meals.Active loperamide HCl (IMODIUM) 2 mg tab Take 2 mg by mouth as needed.Active MULTIVITAMIN ORAL Take by mouth.Active olodaterol 2.5 mcg/actuation mist Inhale 2 Puffs as instructed once daily.Active omeprazole (PRILOSEC) 20 mg capsule Take 20 mg by mouth once daily.Active tamsulosin (FLOMAX) 0.4 mg Take 0.4 mg by mouth once daily.Active albuterol HFA (PROVENTIL HFA, VENTOLIN HFA) 90 mcg/actuation inhaler INHALE 1 OR 2 PUFFS BY MOUTH FOUR TIMES A DAY NEEDED FOR SHORTNESS OF BREATH OR NAAMLYHO52/14/2023ctive clotrimazole-betamethasone (LOTRISONE) cream APPLY A SUFFICIENT AMOUNT EXTERNALLY TWICE A DAY TO SCALY AREAS OF THE FEET 07/21/2022ctive aspirin, enteric coated (ASPIRIN, ENTERIC COATED) 81 mg EC tablet Active Cholecalciferol-Soy Isoflavone 2,000-64 unit-mg tab Take by mouth.Active CHLORTHALIDONE ORAL Take by mouth.Active cromolyn sodium (CROMOLYN NASAL) Use in the nose.Active BENEFIBER, WHEAT DEXTRIN, ORAL Take by mouth.Active tadalafil 10 mg edis (CPD) Take 10 mg by mouth as directed. Dissolve 1 edis under the tongue 30-60 minutes prior to sexual activityActive furosemide (LASIX) 20 mg tablet take 1 tablet by mouth every day 90 tablet 4Active Active Problems ProblemNoted DateDiagnosed BqbkFrsiuqyniibiguwy14/21/2023Centrilobular emphysema 3Pleural sruqftxv54/06/2023Diabetic peripheral mvkldgvqes75/13/2023 Stage 4 chronic kidney jvuyovj2007/19/2023 Immunizations ImmunizationAdministration DatesNext DueAS03 syzfadku10/13/2019,08/10/2018COVID- 19 original vaccine, age 12+ yr, monovalent ([employer] - PURPLE TOP) 1diphtheria tetanus pertussis (DTaP) vaccine, unspecified formulation 08/09/2013influenza (HD-IIV3) vaccine, age 65+ yr, high dose, trivalent, PF (FLUZONE HIGH-DOSE)08/09/2017,08/24/2015influenza (HD-IIV4) vaccine, age 65+ yr, high dose, quadrivalent, PF (FLUZONE HIGH-DOSE)09/14/2022influenza (LAIV) vaccine, nasal, unspecified cbihlkrwipb03/20/2014,08/09/2013,08/06/2013, 08/06/2012influenza (aIIV4) vaccine, age 65+ yr, quadrivalent, PF (FLUAD QUAD) 3pneumococcal conjugate (PCV13) vaccine, 13 valent (PREVNAR 13) 10/08/2015pneumococcal polysaccharide (PPV23) vaccine, 23 valent (PNEUMOVAX 23) 03/09/2018pneumococcal vaccine, unspecified ociavyihusx95/20/2013tetanus diphtheria pertussis (Tdap) vaccine, age 7+ yr (ADACEL, BOOSTRIX)09/01/2023 zoster (RZV) vaccine, recombinant (SHINGRIX)08/09/2019,02/08/2019 Family History Medical HistoryRelationCommentsProstate CancerBrotherColon CancerFatherHeart AttackFatherHeart diseaseFatherDiabetesMaternal GrandmotherLung CancerMother RelationStatusCommentsBrotherFatherMaternal GrandmotherMother Social History Tobacco UseTypesPacks/DayYears UsedDateSmoking Tobacco: FormerCigarettesQuit: 2011Passive Smoke Exposure: NeverSmokeless Tobacco: Never Tobacco Cessation:Counseling Given: Not Answered Alcohol UseStandard Drinks/WeekCommentsNever0 (1 standard drink = 0.6 oz pure alcohol)PHQ-2AnswerDate RecordedPHQ-2 idagk143rea Deprivation Index AnswerDate RecordedNational Score (1-100), lower number is lower risk79 07/19/2023State Score (1-10), lower number is lower iftv86307/19/2023ata from: https://www.neighborhoodatlas.[facility].edu/. Last address used for [address]/13/2023Sex and Gender InformationValueDate Recorded Sex Assigned at BirthNot on fileLegal HceTbms15/02/2012 10:10 AM ESTGender IdentityNot on fileSexual OrientationNot on file Last Filed Vital Signs Vital SignReadingTime TakenCommentsBlood Owecdnxw616/4810/13/2023 3:14 PM EST Hjqiz694210/13/2023 3:14 PM DJJQktyrgdzsjw18.6 ??C (97.9 ??F)10/13/2023 3:14 PM ESTRespiratory Fxsf909512/14/2022 3:14 PM ESTOxygen Uqtivfcfpe47%10/13/2023 3:14 PM ESToxygen on 3LInhaled Oxygen Concentration--Lobefl52 kg (152 lb 3.2 oz) 10/13/2023 3:14 PM WJACpdszj878.6 cm (5' 4.02 )10/13/2023 3:14 PM ESTBody Mass Index26.11112/14/2022 3:14 PM EST Plan of Treatment Health MaintenanceDue DateLast RudlWwaojghoKrC6G38/25/1955Diabetic Foot Exam 1959Dilated Retinal Exam1959Urine Albumin:Creatinine Ratio1959 Annual PCP Team Chronic Disease Visit1967Anxiety Mdkslllar26/25/1968 Depression Ccvrhiovn37/25/1968LDL Wmxsurssyrt34/25/1968CT Rgvvyitlekth72/25/1995 Cologuard (FIT-DNA)1994Fecal Occult Blood12/31/19946587Mhsbzeaequqfi00/25/1995 Czasaqfnwad81, 02/21/2013, 01/24/2013Colorectal Cancer Gnatmxmib22/18/2014Hemoglobin/Hwanjytcir95/06/202412/04/2023, 07/19/2023Serum Xyjuyplnwi09/06/202412/04/2023, 09/26/2023, 09/12/2023, Additional history existsAdvance Directive Mnqotfftvs23/01/2025RSV Vaccine (1 - 1-dose 75+ series) 2024ovid-19 Vaccine ( season), 08/17/2022, 02/09/2022, Additional history existsInfluenza Vaccine (#1)/04/2023, 09/14/2022, 08/09/2017, Additional history existsDTaP,Tdap,Td Vaccine (3 - Td or Tdap), 08/09/2013Pneumococcal Vaccine: 50+Completed 03/09/2018, 10/08/2015, 12/26/2012Shingrix JtmzvlpShvtxmcla48/04/2019, 02/08/2019Hepatitis C ItzbdyuoxXsviionon19/13/2023 Procedures Procedure NamePriorityDate/TimeAssociated DiagnosisCommentsCBC + DIFFRoutine 10/11/2023 12:32 PM EST Pleural effusion COMPREHENSIVE METABOLIC BYKVETrhflyr40/06/2023 12:32 PM EST Pleural effusion HEPATITIS C ANTIBODY IA WITH TYFMFJSKYLHZLecxkus71/13/2023 4:11 PM EDT 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 Last 3 Months or Most Recently Relevant to Health Maintenance Results * (ABNORMAL) COMP METABOLIC PANEL (10/11/2023 12:32 PM EST)ComponentValueRef RangeTest MethodAnalysis TimePerformed AtPathologist SignatureProtein, Total 6.76.3 - 8.0 g/dL10/12/2023 4:25 AM [facility] LABAlbumin 4.33.9 - 4.9 g/dL10/12/2023 4:25 AM [facility] Calcium, Total9.28.5 - 10.2 mg/dL10/12/2023 4:25 AM [facility] LABBilirubin, Total0.40.2 - 1.3 mg/dL10/12/2023 4:25 AM [facility] LABAlkaline Vfczwsyowyr558(H)38 - 113 U/L112/13/2022 4:25 AM [facility] QAMUEI7236 - 40 U/L112/13/2022 4:25 AM [facility] PZYGKI2488 - 54 U/L112/13/2022 4:25 AM [facility] IDLEtbtiqz304(H)74 - 99 mg/dL10/12/2023 4:25 AM [facility] LABComment: The [place] Diabetes Association (ADA) provides guidance for cutoff values for fasting glucose andrandom glucose. The ADA defines fasting as no caloric intake for at least 8 hours. Fasting plasma glucose results between 100 to 125 mg/dL indicate increased risk for diabetes (prediabetes). Fasting plasma glucose results greater than or equal to 126 mg/dL meet the criteria for diagnosis of diabetes. In the absence of unequivocal hyperglycemia, results should be confirmed by repeat testing. In a patient with classic symptoms of hyperglycemia or hyperglycemic crisis, random plasma glucose results greater than or equal to 200 mg/dL meet the criteria for diagnosis of diabetes. Reference: Standards of Medical Care in Diabetes 2016, [place] Diabetes Association. Diabetes Care. 2016.39(Suppl 1). BUN34(H)9 - 24 mg/dL10/12/2023 4:25 AM [facility] Creatinine2.34(H)0.73 - 1.22 mg/dL10/12/2023 4:25 AM [facility] OOQKgbgzw507542 - 144 mmol/L112/13/2022 4:25 AM [facility] LABPotassium5.13.7 - 5.1 mmol/L112/13/2022 4:25 AM [facility] QTWSadjtesa536(H)97 - 105 mmol/L112/13/2022 4:25 AM [facility] ZVMRI22523 - 30 mmol/L112/13/2022 4:25 AM [facility] LABAnion Xkh683 - 18 mmol/L112/13/2022 4:25 AM [facility] LABEstimated Glomerular Filtration Rate29(L)>=60 mL/min/1.73m 10/12/2023 4:25 AM [facility] LABComment:Estimated Glomerular Filtration Rate (eGFR) is calculated using the 2020 CKD-EPI creatinine equation. This equation utilizes serum creatinine, sex, and age as parameters. The creatinine assay has traceable calibration to isotope dilution- mass spectrometry. Refer to KDIGO guidelines for clinical interpretation. In patients with unstable renal function, e.g. those with acute kidney injury, the eGFRmay not accurately reflect actual GFR.Specimen (Source)Anatomical Location / LateralityCollection Method / VolumeCollection TimeReceived TimeBloodBLOOD SPECIMEN / UnknownVenipuncture / Uotnjtf6810/11/2023 12:32 PM EST10/11/2023 12:32 PM EST Narrative Authorizing ProviderResult TypeResult StatusGanesh Barriga MDLABORATORYFinal ResultPerforming OrganizationAddressCity/State/ZIP CodePhone Number [facility] [address] [address] [place] [address], * (ABNORMAL) CBC + DIFF (10/11/2023 12:32 PM EST)ComponentValueRef RangeTest MethodAnalysis TimePerformed AtPathologist SignatureWBC3.39(L)3.70 - 11.00 k/uL10/11/2023 12:37 PM [facility] LABRBC3.67(L)4.20 - 6.00 m/uL10/11/2023 12:37 PM [facility] Yiuyrykees47.2(L)13.0 - 17.0 g/dL10/11/2023 12:37 PM [facility] TTBGfqwfhdfsr22.1(L)39.0 - 51.0 %10/11/2023 12:37 PM [facility] UTXBMQ95.780.0 - 100.0 fL10/11/2023 12:37 PM [facility] QQSILK92.826.0 - 34.0 pg10/11/2023 12:37 PM [facility] KXCGOEF36.830.5 - 36.0 g/dL10/11/2023 12:37 PM [facility] LABRDW-CV15.011.5 - 15.0 % 10/11/2023 12:37 PM [facility] LABPlatelet Count80 (L)150 - 400 k/uL10/11/2023 12:37 PM [facility] Comment:No clot detected.MPV8.5(L)9.0 - 12.7 fL10/11/2023 12:37 PM [facility] LABNeutrophils %53.7%10/11/2023 12:37 PM [facility] LABAbs Neut1.821.45 - 7.50 k/uL10/11/2023 12:37 PM [facility] LABLymphocytes %32.4%10/11/2023 12:37 PM [facility] LABAbs Lymph1.101.00 - 4.00 k/uL 10/11/2023 12:37 PM [facility] LABMonocytes %7.4% 10/11/2023 12:37 PM [facility] LABAbs Mono0.25<0.87 k/uL10/11/2023 12:37 PM [facility] LABEosinophils % 5.0%10/11/2023 12:37 PM [facility] LABAbs Eosin0.17 <0.46 k/uL10/11/2023 12:37 PM [facility] Basophils %1.2%10/11/2023 12:37 PM [facility] LABAbs Baso0.04<0.11 k/uL10/11/2023 12:37 PM [facility] Immature Granulocytes %0.3%10/11/2023 12:37 PM [facility] LABAbs Immature Gran<0.03<0.10 k/uL10/11/2023 12:37 PM [facility] LABNRBC0.0/100 WBC10/11/2023 12:37 PM [facility] LABAbsolute nRBC<0.01<0.01 k/uL10/11/2023 12:37 PM EST [facility] LABDiff UsefXvmh58/06/2023 12:37 PM EST [facility] LABSpecimen (Source)Anatomical Location / LateralityCollection Method / VolumeCollection TimeReceived TimeBloodBLOOD SPECIMEN / UnknownVenipuncture / Qoibebw8110/11/2023 12:32 PM EST10/11/2023 12:32 PM EST Narrative Authorizing ProviderResult TypeResult StatusGanesh Barriga MDLABORATORYFinal ResultPerforming OrganizationAddressCity/State/ZIP CodePhone Number [facility] [address] [place] [address] * HEPATITIS C ANTIBODY IA WITH CONFIRMATION (07/19/2023 4:11 PM EDT)Component ValueRef RangeTest MethodAnalysis TimePerformed AtPathologist SignatureHep C Antibody YJKrzsqyxkMzrlnqvs33/14/2023 9:52 AM EDTCUNIVERSITY [facility]ALS [facility] LABComment:The result suggests no evidence of active infection with Hepatitis C virus. Should recent infectionbe suspected, repeat testing may be considered 4-6 weeks after this draw.Specimen (Source)Anatomical Location / Laterality Collection Method / VolumeCollection TimeReceived TimeBloodBLOOD SPECIMEN / UnknownVenipuncture / Zgotzjc8007/19/2023 4:11 PM EDT07/19/2023 4:11 PM EDT Narrative Authorizing ProviderResult TypeResult StatusGanesh Barriga MDLABORATORYFinal ResultPerforming OrganizationAddressCity/State/ZIP CodePhone Number [facility] [address] [facility] [address] [place] [address], from Last 3 Months or Most Recently Relevant to Health Maintenance Insurance Care Teams Team MemberRelationshipSpecialtyStart DateEnd [facility], Hansel Mireles [place] [address] PCP - Jwekoew09/4/23 Rafael Downs DO [address] [place] [id number] Internal Laiznnuc88/4/23 Ganesh Barriga MD [address] [place] [address] ReferringHematology/Ovidfunc50/26/23
--- OUTSIDE RECORDS SUMMARY | 2025-10-07 14:34 | XMS_ITS | Clinical Summary ---
Author Organization [facility] Address [address] [place] [address] Care Team Providers Care Dope Mixer Name Role Phone Mireya Horne MD Primary Care Provider [phone] Allergies No known active allergies Medications MedicationSigDispense QuantityRefillsLast FilledStart DateEnd DateStatus albuterol HFA 90 mcg/act inhaler Prfctg6603/06/2024ctive albuterol (2.5 MG/3ML) 0.083% nebulizer solution Hignja815Active allopurinol (Zyloprim) 100 MG tablet Take 100 mg by mouth03/06/2024ctive aspirin (Aspir-Low) 81 MG EC tablet Pt is currently holding medicationActive atorvastatin (Lipitor) 20 MG tablet Take 20 mg by mouth at bedtime for /06/2025tive bisacodyl (Dulcolax) 5 MG EC tablet Take 10 mg by mouth07/23/2024ctive calcium acetate (Phoslo) 667 MG capsule Take 667 mg by mouth5Active clotrimazole-betamethasone (Lotrisone) cream Apply uruhnuebs46/23/2025Active cromolyn (Nasachrom) 5.2 MG/ACT nasal spray Administer into affected nostril(s)11/19/2024tive ferrous sulfate 325 (65 Fe) MG tablet Take 1 tablet by mouth Daily07/10/2024ctive loperamide (Imodium A-D) 2 MG tablet Take 2 mg by mouthActive cyanocobalamin (Vitamin B-12) 1000 MCG tablet Take 1,000 mcg by mouth10/17/2024ctive omeprazole (PriLOSEC) [address] capsule Take by mouth10/17/2024ctive olodaterol (Striverdi Respimat) 2.5 MCG/ACT inhaler Inhale 2 puffs in the morning.07/03/2024ctive sodium chloride 3 % nebulizer solution Lzjozx1006/11/2024ctive tiotropium-olodaterol (Stiolto Respimat) 2.5-2.5 MCG/ACT aerosol solution inhaler Kiwjxw7005/20/2025tive vardenafil (Levitra) 20 MG tablet Take 10 mg by mouth10/17/2024ctive traZODone (Desyrel) 50 MG tablet Take 50 mg by mouth03/10/2025tive midodrine (Proamatine) 5 MG tablet Take 5 mg by mouth02/07/2025tive Active Problems ProblemNoted DateDiagnosed DateEnd stage renal disease on wjulrqrl44/29/2025 Encounters DateTypeDepartmentCare QuskOvlmhvjgxtr55/23/2025 2:00 PM EDTOffice Visit [facility] [address] [place] [phone] Migue Helm MD End stage renal disease on dialysis (HCC) (Primary Dx)07/29/20255878Ohgqdz20/04/2025 Wovyzl6807/08/2025 3:45 PM EDTOffice Visit [facility] [address] [place] [phone] Migue Helm MD End stage renal disease on dialysis (HCC) (Primary Dx)07/08/2025Travelfrom Last 3 Months Social History Tobacco UseTypesPacks/DayYears UsedDateSmoking Tobacco: FormerCigarettesQuit: 2012Smokeless Tobacco: Never Tobacco Cessation:Counseling Given: Not Answered Alcohol UseStandard Drinks/WeekCommentsNever0 (1 standard drink = 0.6 oz pure alcohol)Sex and Gender InformationValueDate RecordedSex Assigned at BirthNot on fileLegal HyjSvkx5801/18/2023 6:55 PM EDTGender IdentityNot on fileSexual OrientationNot on file Last Filed Vital Signs Vital SignReadingTime TakenCommentsBlood Pressure--Pulse--Temperature-- Respiratory Rate--Oxygen Saturation--Inhaled Oxygen Concentration--Plbyff55.9 kg (132 lb)07/29/2025 2:04 PM OYNObfims959.6 cm (5' 4 )07/29/2025 2:04 PM EDTBody Mass Index22.66007/29/2025 2:04 PM EDT Plan of Treatment Health MaintenanceDue DateLast DoneCommentsCT Nhzmracrxlbq25/25/1950Colonoscopy 1950Colorectal Cancer Mbblkzzsv98/25/1950FIT-DNA1949FIT1950 FOBT1950 9366Ygglwqvygxhhw82/25/1950COVID-19 Vaccine (2024- season) , 06/14/2024, 08/11/2023, Additional history existsInfluenza Vaccine (#1), 08/11/2023, 09/14/2022, Additional history existsPneumococcal Vaccine: 65+ FqchlFyksvceim93/09/2024, 03/09/2018, 10/08/2015, Additional history exists Insurance Care Teams Team MemberRelationshipSpecialtyStart DateEnd Mireya Horne MD [address] [facility] [address], [place] [address] PCP - GeneralFamily Medicine06/03/25
--- NOTE | 2025-10-07 14:46 | CT_ITS ---
The [address] [address] Patient Name: VIC SIMPSON MRN: [id number] date: 1950 Sex: M Assigned Patient Location: CT Current Patient Location: CT Accession/Order Number: [id number] Exam Date: 10/07/2025 14:40 Report Date: 10/07/2025 16:05 At the request of: LISY FERRER DO Procedure: CT lung screening low-dose CT CHEST WITHOUT CONTRAST, LOW DOSE SCREENING: CLINICAL DATA: A 74-year old former smoker, smoking for 30 pack-years. COMPARISON: CT chest 08/09/2024 TECHNIQUE: Noncontrast axial CT scan images of the chest were obtained under the low dose screening CT protocol. Coronal and sagittal reconstructed images were also submitted. FINDINGS: Mediastinum : Suboptimal evaluation due to low-dose technique. Thoracic aorta appears normal in caliber. Pulmonary trunk appears nondilated. No pericardial effusion. No lymphadenopathy. Calcified subcarinal lymph nodes. The esophagus is grossly unremarkable. Lungs: Chronic consolidation involving the right lower lobe with associated small right pleural effusion similar to the prior study. Emphysema. Mild lung scarring. No pneumothorax. Diffuse bronchial wall thickening. No suspicious noncalcified pulmonary nodule or mass. Upper abdomen: Small amount of upper quadrant ascites. Bony thorax and chest wall: Soft tissues surrounding the chest wall demonstrate no acute findings. Osseous structures demonstrate degenerative change. CT/CT lung screening low-dose IMPRESSION: NO SUSPICIOUS PULMONARY NODULE. CHRONIC CONSOLIDATION RIGHT LOWER LOBE WITH SMALL RIGHT PLEURAL EFFUSION SIMILAR TO THE 2023 STUDY. ATTENTION ON FOLLOW-UP IS RECOMMENDED. EMPHYSEMA. SMALL AMOUNT OF UPPER QUADRANT ASCITES. LUNG - RADS Version 1.0 Assessment: Category 1, Negative (No nodules and definitely benign nodules). Management: Continue annual lung screening with LDCT in 12 months. Impression dictated by: Tahir Chisholm Jr., D.O. 10/07/2025 4:05 PM Dictation Location: [place] [address] Electronically authenticated by: [id number] Y Date: 10/07/2025 16:05
== END 2025-10-07 14:31 | disposition home or self-care (01) ==
LOC: CT 14:30
PROVIDERS: Visit Provider Internal Medicine
DX: R18.8 Other ascites (principal); Z87.891 Personal history of nicotine dependence; Z12.2 Encounter for screening for malignant neoplasm of respiratory organs; J43.9 Emphysema, unspecified; J90 Pleural effusion, not elsewhere classified
CPT/HCPCS: 71271